=== PATIENT | male | born 1950 | race Caucasian/White ===

== ENCOUNTER 2020-05-08 22:23 | Emergency (ER) | payer OTHER ==
[~2020-05-08] VITALS: Ht 182.9 cm; Wt 104.3 kg
[2020-05-08] MEDS ORDERED: CYCLOBENZAPRINE 10 MG (FLEXERIL) TAB PO STA (23:02)
[2020-05-08] MEDS ORDERED: CYCL10TA9 PO (23:07)
[2020-05-08] MEDS ORDERED: ACHD5005 PO (23:07)
--- NOTE | 2020-05-08 23:07 | ED Back Pain ---
General Chief Complaint: Back Problems Stated Complaint: BACK PAIN Nursing Triage Note: PT AMBULATE TO ROOM FS02 WITH C/O SHOULDER AND NECK PAIN X4 DAYS. PT REPORTS TAKING IBUPROFEN AND HYDROCODONE WITHOUT RELIEF. Nursing Sepsis Screen: No Definite Risk Source of Information: Patient History of Present Illness Date Seen by Provider: May 08, 2020 Time Seen by Provider: 23:00 Initial Comments 69-year-old male presents with right upper back pain for the past 2 days. Denies any injury or trauma, any previous history of similar pain. He does have chronic low back pain for which he sees a chiropractor. Has been taking some of his 's hydrocodone, using a heating pad as well as applying Biofreeze occasionally with only minimal relief. Tonight, he says this pain is keeping him from able to go to sleep. Pain is worse with certain movements, and often unable to find a comfortable position. Denies any radiation of pain, paresthesia or weakness. Allergies and Home Medications Allergies Coded Allergies: No Known Allergies (Verified Allergy, Unknown, 05/08/20) Home Medications Cyclobenzaprine HCl 10 Mg Tablet, 10 MG PO qhs PRN for SPASMS Prescribed by: SONIA HERNANDEZ on 05/08/202306 Hydrocodone/Acetaminophen 1 Each Tablet, 1 EACH PO Q4H Prescribed by: SONIA HERNANDEZ on 05/08/202306 Patient Home Medication List Home Medication List Reviewed: Yes Review of Systems Constitutional: No fever, No malaise, No weakness EENTM: no symptoms reported Respiratory: no symptoms reported; No cough, No short of breath Cardiovascular: No chest pain, No edema, No palpitations Gastrointestinal: No abdominal pain, No nausea, No vomiting Musculoskeletal: see HPI, back pain; No joint pain; muscle pain, muscle stiffness; No muscle cramps, No muscle twitching, No muscle weakness, No neck pain Psychiatric/Neurological: Denies Headache, Denies Numbness, Denies Paresthesia Past Moedrcp-Pkjtdj-Anzzsn Hx Past Med/Social Hx: Reviewed Nursing Past Med/Soc Hx Patient Social History Alcohol Use: Regular Use Recreational Drug Use: No Smoking Status: Current Everyday Smoker Type Used: Cigarettes 2nd Hand Smoke Exposure: Yes Recent Foreign Travel: No Contact w/Someone Who Travel: No Recent Infectious Disease Expo: No Recent Hopitalizations: No Physical Abuse: No Sexual Abuse: No Mistreated: No Fear: No Seasonal Allergies Seasonal Allergies: No Past Medical History Surgeries: Yes Adenoidectomy, Tonsillectomy Respiratory: No Cardiac: Yes Atrial Fibrillation, Hypertension Neurological: No Genitourinary: No Gastrointestinal: No Musculoskeletal: No Endocrine: No (HX OF DIABETES. ) HEENT: No Cancer: No Psychosocial: No Integumentary: No Blood Disorders: No Physical Exam Vital Signs Vital Signs - First Documented 05/08/20 22:38 Temp 36.6 Pulse 67 Resp 18 B/P (MAP) 113/73 (86) O2 Delivery Room Air Capillary Refill : Less Than 3 Seconds Height, Weight, BMI Height: '" Weight: lbs. oz. kg; 31.00 BMI Method: General Appearance: No Apparent Distress, WD/WN Neck: Full Range of Motion, Non Tender, Supple Cardiovascular: Regular Rate, Rhythm, No Edema, No Gallop Respiratory: Chest Non Tender, Lungs Clear, Normal Breath Sounds Back: Normal Inspection, No CVA Tenderness, No Vertebral Tenderness; No Decreased Range of Motion; Muscle Spasm (R upper trapez. ms.); No Vertebral Tenderness Extremity: Normal Capillary Refill, Normal Inspection, Normal Range of Motion, Non Tender Neurologic/Psychiatric: Alert, Oriented x3, No Motor/Sensory Deficits, Normal Mood/Affect Progress/Results/Core Measures Results/Orders My Orders Orders - SONIA HERNANDEZ DO Hydrocodone/Apap 5/325 Tablet (Lortab 5 (05/08/20 23:15) Cyclobenzaprine Tablet (Flexeril Tablet) (05/08/20 23:02) Vital Signs/I&O 05/08/20 22:38 Temp 36.6 Pulse 67 Resp 18 B/P (MAP) 113/73 (86) O2 Delivery Room Air Blood Pressure Mean: 86 Departure Impression Primary Impression: Back strain of thoracic region Qualified Codes: S29.019A - Strain of muscle and tendon of unspecified wall of thorax, initial encounter Disposition: 01 HOME, SELF-CARE Condition: Stable Departure-Patient Inst. Decision time for Depature: 23:04 Patient Instructions: Muscle Strain (DC) Add. Discharge Instructions: see your PCP in 1 week if not improving, sooner if worse. All discharge instructions reviewed with patient and/or family. Voiced understanding. Scripts Hydrocodone/Acetaminophen (Hydrocodone-Acetamin 5-325 mg) 1 Each Tablet 1 EACH PO Q4H for Abdominal Pain, #15 TAB Prov: SONIA HERNANDEZ DO 05/08/20 Cyclobenzaprine HCl (Cyclobenzaprine HCl) 10 Mg Tablet 10 MG PO qhs PRN for SPASMS, #20 TAB 0 Refills Prov: SONIA HERNANDEZ DO 05/08/20 SONIA HERNANDEZ DO May 08, 2020 23:07
[2020-05-08] MEDS ORDERED: HYDROcodone/APAP 5 MG/325 MG (LORTAB) TAB PO ONE (23:15)
[2020-05-08 23:47] VITALS: BP 137/78
== END 2020-05-08 23:47 | disposition home or self-care (01) ==
LOC: EDUNIT# 22:23 → ER FS 22:25
DX: S29.012A Strain of muscle and tendon of back wall of thorax, initial encounter (principal); F17.210 Nicotine dependence, cigarettes, uncomplicated; X58.XXXA Exposure to other specified factors, initial encounter
CPT/HCPCS: 99283

== ENCOUNTER → 2020-08-27 | Outpatient (CLI) | payer OTHER ==
[~2020-08-27] VITALS: Ht 182 cm; Wt 97.0 kg
[~2020-08-27] MED LIST: ACHD5005 PO; CATHETER FLUSH 10 ML SYR IV PRN; CYCL10TA9 PO; REGADENOSON 0.4 MG/5 ML SYR (LEXISCAN) IV ONE
[2020-08-27 12:54] VITALS: BP 168/89
--- NOTE | 2020-08-27 15:35 | STRESS TEST ---
DATE OF SERVICE: 08/27/2020 RESTING AND POST REGADENOSON TECHNETIUM-99M TETROFOSMIN SPECT CT IMAGING ORDERING PHYSICIAN: Dr. Quiroz. CLINICAL DIAGNOSES: Atrial fibrillation, hypertension, hyperlipidemia, history of cardiomyopathy, diabetes mellitus, tobacco use. Baseline images were carried out after injection of 10.71 mCi of technetium-99m Tetrofosmin. This was followed by 0.4 mg regadenoson and 29.4 mCi of technetium-99m Tetrofosmin for stress imaging. Electrocardiogram shows atrial fibrillation that persisted throughout the study. There was nonspecific ST abnormality that did not change. The patient did not report symptoms. Review of images at rest and following stress does not indicate any significant perfusion defects consistent with myocardial ischemia or infarction. Gated images show normal global left ventricular systolic function with normal regional wall motion. Left ventricular ejection fraction is calculated to be 62%. Left ventricular end diastolic volume is 91 mL. TID is absent (0.9). CONCLUSIONS: 1. No evidence of any significant myocardial ischemia or infarction. 2. Normal regional wall motion. 3. Normal global left ventricular systolic function with a calculated ejection fraction of 62%. Job ID: [id number] DocumentID: [id number] Dictated Date: 08/27/2020 15:05:46 Logging Assistant Date: 08/27/2020 15:35:10 Dictated By: SAMARA QUIROZ MD, MA, FACP, FACC,
== END ==
LOC: CARD 09:53
PROVIDERS: ATTEND Internal Medicine Cardiovascular Disease
DX: I48.21 Permanent atrial fibrillation (principal); I11.9 Hypertensive heart disease without heart failure; E78.5 Hyperlipidemia, unspecified; E11.9 Type 2 diabetes mellitus without complications; Z72.0 Tobacco use
CPT/HCPCS: 78452; 93017; 93306

== ENCOUNTER 2022-06-03 10:45 | Emergency (ER) | payer OTHER ==
[~2022-06-03] VITALS: Ht 185.5 cm; Wt 97.5 kg
[~2022-06-03 10:45] MED LIST changes: -CATHETER FLUSH 10 ML SYR IV PRN; +CYCL10TA25 PO; -CYCL10TA9 PO; -REGADENOSON 0.4 MG/5 ML SYR (LEXISCAN) IV ONE
[2022-06-03 11:00] VITALS: BP 145/92
--- NOTE | 2022-06-03 11:10 | ED General ---
General Stated Complaint: KERR; SORE THROAT Source of Information: Patient, Family Exam Limitations: No Limitations History of Present Illness Date Seen by Provider: Jun 03, 2022 Time Seen by Provider: 10:53 Initial Comments 71-year-old male with past medical history most notable for A. fib on Eliquis as well as diabetes coming in due to 1 day of body aches, cough, congestion, sore throat. Does not believe he has had a fever. Mild dyspnea with a cough, but denies any chest pain, abdominal pain, nausea, vomiting, diarrhea, has not had an elevated temperature that he knows of, weakness, numbness, rash, headache, neck stiffness, or any other concerns. Is unsure if he has been around anyone sick. Has had the COVID booster and did get a flu shot this year. Allergies and Home Medications Allergies Coded Allergies: No Known Allergies (Verified Allergy, Unknown, 05/08/20) Patient Home Medication List Home Medication List Reviewed: Yes Cyclobenzaprine HCl (Cyclobenzaprine HCl) 10 Mg Tablet, 10 MG PO qhs PRN for SPASMS Prescribed by: SONIA HERNANDEZ on 05/08/202306 Hydrocodone/Acetaminophen (Hydrocodone-Acetamin 5-325 mg) 1 Each Tablet, 1 EACH PO Q4H Prescribed by: SONIA HERNANDEZ on 05/08/202306 Review of Systems Review of Systems Constitutional: No fever; malaise EENTM: No blurred vision Respiratory: cough Cardiovascular: no symptoms reported Gastrointestinal: no symptoms reported Genitourinary: no symptoms reported Musculoskeletal: no symptoms reported Skin: no symptoms reported Psychiatric/Neurological: No Symptoms Reported Hematologic/Lymphatic: No Symptoms Reported Immunological/Allergic: no symptoms reported All Other Systems Reviewed Negative Unless Noted: Yes Past Hfgamqh-Ahqkzw-Dcfqxm Hx Patient Social History Tobacco Use?: Yes Seasonal Allergies Seasonal Allergies: No Past Medical History Surgeries: Yes Adenoidectomy, Tonsillectomy Respiratory: No Cardiac: Yes Atrial Fibrillation, Hypertension Neurological: No Genitourinary: No Gastrointestinal: No Musculoskeletal: No Endocrine: No (HX OF DIABETES. ) HEENT: No Cancer: No Psychosocial: No Integumentary: No Blood Disorders: No Physical Exam Vital Signs Vital Signs - First Documented 06/03/22 11:00 Temp 36.6 Pulse 76 Resp 18 B/P (MAP) 145/92 (109) Pulse Ox 99 O2 Delivery Room Air Capillary Refill : Height, Weight, BMI Height: '" Weight: lbs. oz. kg; 29.28 BMI Method: General Appearance: No Apparent Distress, WD/WN Eyes: Bilateral Eye Normal Inspection, Bilateral Eye PERRL HEENT: PERRL/EOMI, TMs Normal, Normal ENT Inspection, Pharynx Normal Neck: Full Range of Motion, Normal Inspection, Non Tender, Supple Respiratory: Chest Non Tender, Lungs Clear, Normal Breath Sounds, No Accessory Muscle Use, No Respiratory Distress Cardiovascular: No Edema, Normal Peripheral Pulses, Irregularly Irregular Gastrointestinal: Normal Bowel Sounds, Non Tender, Soft; No Distended, No Guarding Back: Normal Inspection, No CVA Tenderness, No Vertebral Tenderness Extremity: Normal Capillary Refill, Normal Inspection, Normal Range of Motion, Non Tender, No Calf Tenderness, No Pedal Edema Neurologic/Psychiatric: Alert, No Motor/Sensory Deficits, Normal Mood/Affect Skin: Normal Color, Warm/Dry Lymphatic: No Adenopathy Progress/Results/Core Measures Suspected Sepsis SIRS Temperature: Pulse: Respiratory Rate: Blood Pressure / Mean: Results/Orders Lab Results Laboratory Tests Test 06/03/22 11:07 Range/Units Influenza Type A (RT-PCR) Not Detected Not Detecte Influenza Type B (RT-PCR) Not Detected Not Detecte SARS-CoV-2 RNA (RT-PCR) Not Detected Not Detecte My Orders Orders - ANA HOLLINGSWORTH MD Influenza A And B By Pcr (06/03/22 11:07) Chest Pa/Lat (2 View) (06/03/22 11:07) Covid 19 Inhouse Test (06/03/22 11:07) Acetaminophen Tablet (Tylenol Tablet) (06/03/22 11:15) Medications Given in ED Current Medications Medications Dose Ordered Sig/Nathalie Route Start Time Stop Time Status Last Admin Dose Admin Acetaminophen 1,000 mg ONCE ONCE PO 06/03/22 11:15 06/03/22 11:16 DC 06/03/22 11:15 1,000 MG Vital Signs/I&O 06/03/22 11:00 Temp 36.6 Pulse 76 Resp 18 B/P (MAP) 145/92 (109) Pulse Ox 99 O2 Delivery Room Air Capillary Refill : Progress Note : Progress Note 71-year-old male with above history coming in due to flulike symptoms including body ache, cough, mild dyspnea. ABCs were intact and vitals were stable on presentation. Physical exam reassuring with no focal abnormalities and he appears well-appearing. Flu and COVID testing were negative. Chest x-ray without acute abnormality. Likely does have a flulike illness. I believe he is stable for discharge with outpatient follow-up as he is tolerating p.o., ambulating, once again well-appearing. He was sent home with strict return precautions. Diagnostic Imaging Diagonstic Imaging: Xray (chest) Comments NAME: NEHAL JEREZ [facility] REC#: [id number] PT STATUS: REG ER : 1950 PHYSICIAN: ANA HOLLINGSWORTH MD ADMIT DATE: 06/03/22/ER FS Draft Date of Exam:06/03/22 CHEST PA/LAT (2 VIEW) CLINICAL INDICATION: Patient with fever and shortness of breath. EXAM: Chest x-ray, PA and lateral views. COMPARISON: None. FINDINGS: Lungs/pleura: Lungs are clear. There is no pneumothorax. There is no pleural effusion. Mediastinum: Unremarkable. Pulmonary vasculature: Unremarkable. Heart: Unremarkable. Bones/extrathoracic soft tissue: There are hypertrophic spurs involving the thoracic spine. There is straightening of the thoracolumbar spine region. IMPRESSION: There is no radiographic evidence of acute cardiopulmonary process. Dictated on workstation # [id number] Dict: 06/03/22 1126 Trans: 06/03/22 1129 [id number] Interpreted by: AYESHA LANDIN MD Electronically signed by: Departure Impression Primary Impression: Flu-like symptoms Disposition: HOME, SELF-CARE Condition: Stable Departure-Patient Inst. Decision time for Depature: 11:56 Referrals: NO,LOCAL PHYSICIAN (PCP/Family) Primary Care Physician Patient Instructions: Viral Syndrome (DC) Add. Discharge Instructions: Your flu and COVID testing were negative. Your chest x-ray looked clear as well. There are multiple viruses going around town however that appear very similar to the flu. Expect body aches and feeling bad for the next 3 to 4 days, and then slowly feeling better after that. Please follow-up with your regular doctor in the next 3 days if you are not improving. ANA HOLILNGSWORTH MD Jun 03, 2022 11:10
[2022-06-03] MEDS ORDERED: ACETAMINOPHEN 500 MG TAB (TYLENOL) PO ONE (11:15)
--- NOTE | 2022-06-03 11:29 | Diagnostic Imaging Report ---
CLINICAL INDICATION: Patient with fever and shortness of breath. EXAM: Chest x-ray, PA and lateral views. COMPARISON: None. FINDINGS: Lungs/pleura: Lungs are clear. There is no pneumothorax. There is no pleural effusion. Mediastinum: Unremarkable. Pulmonary vasculature: Unremarkable. Heart: Unremarkable. Bones/extrathoracic soft tissue: There are hypertrophic spurs involving the thoracic spine. There is straightening of the thoracolumbar spine region. IMPRESSION: There is no radiographic evidence of acute cardiopulmonary process. Dictated by: Dictated on workstation # [id number]
== END 2022-06-03 12:16 | disposition home or self-care (01) ==
LOC: EDUNIT# 10:45 → ER FS 10:47
DX: R05.9 Cough, unspecified (principal); J02.9 Acute pharyngitis, unspecified; I48.91 Unspecified atrial fibrillation; Z20.822 Contact with and (suspected) exposure to COVID-19; Z79.01 Long term (current) use of anticoagulants
CPT/HCPCS: 71046; 87636